=== PATIENT | female | born 1950 | race Hispanic/Latino ===

== ENCOUNTER 2017-06-12 13:49 | Outpatient (CLI) | payer BC ==
--- NOTE | 2017-06-13 14:29 | Magnetic Resonance Report ---
BILATERAL BREAST MRI WITHOUT AND WITH CONTRAST: 06/12/17 13:49:00 CLINICAL: Status post surgical duct exploration and excision. The pathology revealed at least 16.0 mm of DCIS and positive margins. COMPARISON:03/30/17 bilateral mammogram and 05/25/17 left mammogram. TECHNIQUE: Axial 1.0-mm T1 without, axial high resolution 2.0-mm T2 and axial 1.0-mm dynamic Vibrant high-resolution postcontrast T1 fat saturation sequences on a 1.5 Jes magnet. The examination was performed with an 8 channel dedicated [place] breast coil. Post processing with CAD and subtraction was performed on an [employer] workstation. 16.0 cc of Multihance was injected intravenously for the contrast portion of the exam. Consent was obtained prior to the administration of the contrast. FINDINGS: Right: Minimal background parenchymal enhancement. No mass or suspicious enhancement. No suspicious right axillary or right internal mammary lymph nodes. Left: Minimal background parenchymal enhancement. A retroareolar postsurgical seroma measures 5.4 x 4.4 x 6.3 cm. Minimal enhancement and no suspicious enhancement at the margins of the seroma. No mass or suspicious enhancement of the left breast. A single 8mm level I axillary lymph node has benign morphology. No suspicious lymph nodes. IMPRESSION: Known left breast cancer and no additional suspicious lesion of either breast. No suspicious lymph nodes. A 6.3 cm left postsurgical seroma. RIGHT BI-RADS 1 -- Negative LEFT BI-RADS 6 -- Known Cancer
== END 2017-06-12 13:50 | disposition home or self-care (01) ==
LOC: SPVIMAG 13:49
PROVIDERS: ATTEND Surgery
DX: D05.12 Intraductal carcinoma in situ of left breast (principal); L76.34 Postprocedural seroma of skin and subcutaneous tissue following other procedure
CPT/HCPCS: 0159T; A9577; C8908; 77059

== ENCOUNTER 2017-06-16 15:41 | Outpatient (CLI) | payer BC, OTHER | END 2017-06-16 15:42 | disposition home or self-care (01) | LOC: LABHHL 15:41 | PROVIDERS: ATTEND Surgery | DX: N60.12 Diffuse cystic mastopathy of left breast (principal) | CPT/HCPCS: 88305 ==

== ENCOUNTER 2017-07-05 07:27 | Day surgery (SDC) | payer BC ==
[2017-06-28 08:52] LABS: Basophils % (Auto) 0.8 % (0.0-1.8); Eosinophils % (Auto) 1.9 % (0.0-4.3); Hematocrit 36.9 % (30.3-42.9); Hemoglobin 12.6 gm/dl (10.1-14.3); Mean Corpuscular HGB Conc 34 % (30-34); Mean Corpuscular Hemoglobin 32 pg (28-32); Mean Corpuscular Volume 95 fl (79-97); Platelet Count 223 K/mm3 (140-440); Red Blood Count 3.91 M/mm3 (3.65-5.03); Red Cell Distribution Width 13.2 % (13.2-15.2); White Blood Count 6.2 K/mm3 (4.5-11.0)
--- NOTE | 2017-06-28 08:55 | Anesthesia Consultation ---
Anesthesia Consult and Med Hx Date of service: 06/28/17 - Airway Anesthetic Teeth Evaluation: Good, Chipped (cracked tooth #9) ROM Head & Neck: Adequate Mental/Hyoid Distance: Adequate Mallampati Class: Class II Intubation Access Assessment: Probably Good - Pre-Operative Health Status ASA Pre-Surgery Classification: ASA2 Proposed Anesthetic Plan: General - Pulmonary Hx Smoking: No Hx Pneumonia: Yes (in her 20s) Hx Sleep Apnea: No (DREW PRE SCREEN LOW RISK) - Cardiovascular System Hx Hypertension: Yes (10) Hx Coronary Artery Disease: No (high cholesterol) - Central Nervous System Hx Back Pain: Yes (NECK AND BACK PAIN) Hx Psychiatric Problems: No - Hematic Hx Anemia: No - Other Systems Hx Alcohol Use: Yes (3-4 beers day) Hx Substance Use: No Hx Cancer: Yes (Breast CA)
[~2017-07-05 07:27] MED LIST: LACTATED RINGERS 1,000 ML IV SCH; PEPCID IV NR; VERSED IV NR
[2017-07-05] MEDS ORDERED: XYLOCAINE 1% 20 mL ONE (07:41)
[2017-07-05] MEDS ORDERED: MARCAINE 0.25% INFILTRATI ONE ×2 (07:42→10:14)
[2017-07-05] MEDS ORDERED: ANCEF/STERILE WATER 2 GM/20 ML IV NR (08:30)
[2017-07-05] MEDS ORDERED: DIPRIVAN 10 MG/ML IV ONE (09:54)
[2017-07-05] MEDS ORDERED: DILAUDID ONE (09:54)
[2017-07-05] MEDS ORDERED: XYLOCAINE 1% 20 mL INFILTRATI ONE (10:14)
[2017-07-05] MEDS ORDERED: DECADRON ONE (10:15)
[2017-07-05] MEDS ORDERED: XYLOCAINE MPF 2% ONE (10:15)
[2017-07-05] MEDS ORDERED: ZOFRAN ONE (10:15)
[2017-07-05] MEDS ORDERED: TORADOL ONE (10:15)
[2017-07-05] MEDS ORDERED: WATER FOR IRRIG STERILE IR ONE (10:42)
[2017-07-05] MEDS ORDERED: PERCOCET 5/325 PO PRN (11:00)
--- NOTE | 2017-07-05 11:07 | Short Stay Summary ---
Short Stay Documentation Date of service: 07/05/17 - History H&P: obtained from office - Allergies and Medications Current Medications: Allergies No Known Allergies Allergy (Verified 05/25/17 13:16) Home Medications Medication Instructions Recorded Confirmed Last Taken Type Aspirin [Adult Low Dose Aspirin EC] 81 mg PO DAILY 05/25/17 07/05/17 06/26/17 09 :00 History AtorvaSTATin [Lipitor] 80 mg PO QHS 05/25/17 07/05/17 07/04/17 20:00 History Cholecalciferol Vit D3 [Vitamin D3] 1,000 unit PO QDAY 05/25/17 07/05/17 09:00 History Losartan [Cozaar] 100 mg PO QDAY 05/25/17 07/05/17 07/05/17 06:00 History Multivit-Min/FA/Lycopen/Lutein 1 each PO DAILY 05/25/17 07/05/17 07/03/17 09:00 History [Centrum Silver Tablet] [place]-3 Fatty Acids/Fish Oil [Fish 1,000 mg PO DAILY 05/25/17 07/05/17 07/03/17 09:00 History Oil] Ubidecarenone [Coq-10] 100 mg PO DAILY 05/25/17 07/05/17 07/03/17 09:00 History HYDROcodone/APAP 5-325 [[place] 1 each PO Q6HR PRN #30 tablet 05/31/17 06/27/17 Unknown Rx 5/325] HYDROcodone/APAP 5-325 [[place] 1 each PO Q6HR PRN #30 tablet 07/05/17 Unknown Rx 5/325] Active Medications Cefazolin Sodium (Ancef/Sterile Water 2 Gm/20 Ml) 2 gm IV PREOP NR Stop: 07/05/17 12:00 Famotidine (Pepcid) 20 mg IV PREOP NR Stop: 07/05/17 23:59 Last Admin: 07/05/17 08:23 Dose: 20 mg Hydromorphone HCl (Dilaudid) 0.5 mg IV Q10MIN PRN PRN Reason: Pain , Severe (7-10) Stop: 07/05/17 15:00 Lactated Ringer's (Lactated Ringers) 1,000 mls @ 100 mls/hr IV DIRECT ALBINA Last Admin: 07/05/17 08:22 Dose: 100 mls/hr Midazolam HCl (Versed) 2 mg IV PREOP NR Stop: 07/05/17 23:59 Last Admin: 07/05/17 08:25 Dose: 2 mg - Brief post op/procedure progress note Date of procedure: 07/05/17 Pre-op diagnosis: Left breast cancer of the NAC/duct Post-op diagnosis: same Procedure: Left central mastectomy Anesthesia: GETA Findings: Left central mastectomy with excision of the NAC Surgeon: GARY NOLAN Estimated blood loss: minimal Pathology: list (left central mastectomy) Specimen disposition: to lab Condition: stable - Disposition Condition at discharge: Good Disposition: DC-01 TO HOME OR SELFCARE Short Stay Discharge Plan Activity: other (no heavy lifting) Diet: regular Wound: other (keep incision clean and dry; may shower in 24 hours; no baths, pools or lakes; do not rub or scrub incision) Follow up with: AMBROSE RAMIREZ III, MD [Primary Care Provider] - 7 Days GARY NOLAN MD [Staff Physician] - 7 Days Prescriptions: HYDROcodone/APAP 5-325 [[place] 5/325] 1 each PO Q6HR PRN #30 tablet PRN Reason: Pain
--- NOTE | 2017-07-05 11:16 | Operative Report ---
Operative Report Operative Report: Date of Service: July 05, 2017 Preoperative diagnosis: Left breast cancer of the NAC Postoperative diagnosis: Same Procedure: Left central mastectomy Surgeon: Emilee Sams M.D. Asst.: Mrs. Soto Anesthesia: Gen. Findings: Central mastectomy performed. 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 Patient previously underwent a left terminal duct excisional biopsy with findings of low -grade DCIS with positive margins. Recommendations were to proceed with a central mastectomy. Patient wished to proceed with the above procedure. Procedure in detail: The patient was taken to the operating room and was laid supine. General anesthesia was administered. The left breast was prepped and draped in the normal sterile operative fashion. The lateral periareolar incision was noted. Central mastectomy markings were made to include the nipple areolar complex. A skin incision was made with a 15 blade knife with dissection taken down to the subcutaneous tissues. First began raising of the superior flap taken down posteriorly anterior to pectoralis muscle followed by raising of the lateral, inferior and medial flaps in similar fashion. The central mastectomy was appropriately removed anterior to the pectoralis muscle without incident. Specimen was marked and sent to pathology. Prior biopsy cavity site was noted from the left Breast stereotactic biopsy with clip present. Hemostasis was obtained with the aid of the Bovie cautery. Breast cavity was anesthetized with 1% lidocaine mixed with quarter percent Marcaine. Breast cavity was irrigated and suctioned. The posterior tissues were approximated and closed using interrupted 3-0 Vicryl followed by closing of the skin with a running 4-0 Monocryl followed by skin affix. She tolerated surgery very well and was awakened from anesthesia without complications and transferred to PACU in good condition.
[2017-07-05] MEDS: DILAUDID IV PRN ×2 (11:22→11:35)
[2017-07-05 12:47] VITALS: BP 135/85
== END 2017-07-05 12:44 | disposition home or self-care (01) ==
LOC: OR 07:27
PROVIDERS: ATTEND Surgery
DX: C50.912 Malignant neoplasm of unspecified site of left female breast (principal); I10 Essential (primary) hypertension
CPT/HCPCS: 19301; 36415; 85025; 88307; J0690; J1100; J1170; J1885; J2250; J2405; J2704; J7120